=== PATIENT | male | born 1965 | race African-American/Black ===

== ENCOUNTER 2025-10-27 11:52 | Inpatient (IN) | payer MEDICAID ==
[~2025-10-27] VITALS: Ht 177.8 cm; Wt 82.8 kg
[2025-10-27] MEDS: DIATR MEGLU/DIATRIZOATE SOLN 30ML ONE (13:27)
[2025-10-27] MEDS: METHYLPREDNISOLONE SOD SUCC 125MG/2ML (ACT-O-VIAL) IV ONE (13:42)
[2025-10-27] MEDS: ONDANSETRON HCL 4MG/2ML INJ IV ONE (13:42)
[2025-10-27] MEDS: MORPHINE SULFATE 4 MG/ML INJ (FOR IV/IM USE) IV ONE (13:42)
[2025-10-27] MEDS: SODIUM CHLORIDE 0.9% 1,000 ML IV ONE (13:42)
[2025-10-27] MEDS: DIATR MEGLU/DIATRIZOATE SOLN 30ML PO ONE (13:43)
[2025-10-27] MEDS: IPRATROPIUM BROMIDE (0.02%) 0.5MG/2.5ML NEB HHN SCH (13:55)
[2025-10-27] MEDS: ALBUTEROL (0.083%) 2.5MG/3ML NEB HHN SCH (13:55)
[2025-10-27 14:00] VITALS: PULSE 87; RESP 16; O2SAT 99
[2025-10-27 14:30] VITALS: PULSE 88; RESP 16; O2SAT 99
[2025-10-27 14:51] LABS: BASOPHILS % 0.4 % (0.0-2.0); EOSINOPHILS % 6.1 % (0.0-5.0); HEMATOCRIT. 39.2 % (42.0-52.0); HEMOGLOBIN. 12.9 g/dL (14.0-18.0); LYMPHOCYTES % 8.6 % (20.0-50.0); MEAN PLATELET VOLUME 8.7 fl (7.4-10.4); MONOCYTES % 10.9 % (2.0-8.0); NEUTROPHILS % 74.0 % (40.0-76.0); PLATELET 235 x1000/uL (130-400); RED BLOOD CELL COUNT 4.21 mill/uL (4.7-6.1); RED CELL DISTRIBUTION WIDTH 15.0 % (11.6-14.6)
[2025-10-27 15:01] VITALS: PULSE 87; RESP 16; O2SAT 99
[2025-10-27 15:02] LABS: CREATININE 1.0 mg/dL (0.6-1.3); UREA NITROGEN BLOOD 9 mg/dL (9-23)
[2025-10-27 15:03] LABS: PROTEIN TOTAL 6.6 g/dL (6.0-8.3); TROPONIN I HIGH SENSITIVITY 5 ng/L (3.0-53)
[2025-10-27 15:04] LABS: ASPARTATE AMINOTRANSFERASE 22 IU/L (<34); BILIRUBIN DIRECT 0.1 mg/dL (<=3.0); BILIRUBIN TOTAL 0.4 mg/dL (0.1-1.0)
[2025-10-27 15:07] LABS: INR 1.1
[2025-10-27 20:27] LABS: CLARITY URINE CLEAR (CLEAR); COLOR URINE YELLOW (YELLOW); GLUCOSE URINE NEGATIVE (NEGATIVE); KETONES URINE NEGATIVE (NEGATIVE); LEUKOCYTE ESTERASE URINE NEGATIVE (NEGATIVE); NITRITE URINE NEGATIVE (NEGATIVE); OCCULT BLOOD URINE NEGATIVE (NEGATIVE); PH URINE 6.5 (4.5-8.0); PROTEIN URINE NEGATIVE (NEGATIVE); SPECIFIC GRAVITY URINE 1.007 (1.005-1.030); UROBILINOGEN URINE 1.0 E.U./dL (0.2-1.0)
[2025-10-27 21:00] VITALS: BP 127/84; PULSE 76; RESP 18; TEMP 36.1; O2SAT 94
[2025-10-27] MEDS ORDERED: PNEUMOCOCCAL 20-VAL CONJ-DIP CRM 0.5ML IM ONE (21:45)
[2025-10-27] MEDS ORDERED: ONDANSETRON HCL 4MG/2ML INJ IV PRN (22:00)
[2025-10-27 22:06] VITALS: BP 127/84; PULSE 76; RESP 18; TEMP 36.0844
[2025-10-27] MEDS ORDERED: NALOXONE HCL 0.4MG/ML VIAL IV PRN (22:30)
[2025-10-27] MEDS: METHYLPREDNISOLONE SOD SUCC 40MG/ML (ACT-O-VIAL) IV SCH (23:42)
[2025-10-27] MEDS ORDERED: FLUT9.9S BOTHNSTRLS (23:58)
[2025-10-27] MEDS ORDERED: TIOT18CA3 IH (23:58)
[2025-10-28] VITALS (7 sets, daily range): BP systolic 116–131; BP diastolic 69–78; PULSE 18–98; RESP 16–19; TEMP 36.2–36.9; O2SAT 94–100
[2025-10-28 07:20] LABS: BASOPHILS % 0.2 % (0.0-2.0); EOSINOPHILS % 0.2 % (0.0-5.0); HEMATOCRIT. 40.2 % (42.0-52.0); HEMOGLOBIN. 13.2 g/dL (14.0-18.0); LYMPHOCYTES % 7.5 % (20.0-50.0); MEAN PLATELET VOLUME 9.1 fl (7.4-10.4); MONOCYTES % 5.1 % (2.0-8.0); NEUTROPHILS % 87.0 % (40.0-76.0); PLATELET 214 x1000/uL (130-400); RED BLOOD CELL COUNT 4.34 mill/uL (4.7-6.1); RED CELL DISTRIBUTION WIDTH 14.8 % (11.6-14.6)
[2025-10-28 07:22] LABS: CREATININE 0.9 mg/dL (0.6-1.3); UREA NITROGEN BLOOD 11 mg/dL (9-23)
[2025-10-28] MEDS: PANTOPRAZOLE SODIUM 40 MG/VIAL IV SCH (08:37)
[2025-10-28] MEDS: ENOXAPARIN 40MG/0.4ML SYR SUBCUT SCH (09:23)
[2025-10-28] MEDS: BUDESONIDE 0.5MG/2ML NEB HHN SCH (09:52)
[2025-10-28] MEDS ORDERED: IPRA3AMP9 NEB (13:19)
[2025-10-28] MEDS ORDERED: P20 MT (13:19)
[2025-10-28] MEDS ORDERED: ALBU18HF2 IH (13:19)
[2025-10-28] MEDS: IPRATROPIUM/ALBUTEROL 0.5-3(2.5)MG/3ML NEB HHN PRN (14:26)
[2025-10-28] MEDS: HYDROCODONE/ACETAMINOPHEN 5/325MG TABLET PO PRN (21:56)
[2025-10-28] MEDS ORDERED: HYDROCODONE/ACETAMINOPHEN 10/325MG TABLET PO PRN (22:45)
[2025-10-29] VITALS: BP 102/62; PULSE 70; RESP 18; TEMP 36.6; O2SAT 99
[2025-10-29 04:00] VITALS: BP 114/81; PULSE 78; RESP 18; TEMP 36.7; O2SAT 100
[2025-10-29 08:00] VITALS: BP 122/86; PULSE 77; RESP 19; TEMP 36.6; O2SAT 97
[2025-10-29 10:13] VITALS: PULSE 82; RESP 18
[2025-10-29 10:40] VITALS: BP 122/86; PULSE 77; RESP 19; TEMP 97.9
== END 2025-10-29 11:20 | disposition home or self-care (01) | DRG 254 ==
LOC: ER 11:52 → 6WST 17:29 → EDBEDREQ 17:32 → EDBEDREQTM 17:32
PROVIDERS: ADMIT Internal Medicine; ATTEND Internal Medicine
DX: K40.90 Unilateral inguinal hernia, without obstruction or gangrene, not specified as recurrent (principal); J44.1 Chronic obstructive pulmonary disease with (acute) exacerbation; D64.9 Anemia, unspecified; F17.210 Nicotine dependence, cigarettes, uncomplicated; Z71.6 Tobacco abuse counseling
CPT/HCPCS: 36415; 71045; 74176; 80048; 80076; 81003; 83880; 84484; 85025; 93005; 94070; 94640; 99285; J1650; J2270; J2405; J2470; J2919; J7030; J7626; Q9963